=== PATIENT | female | born 1990 | race Caucasian/White ===

== ENCOUNTER 2017-03-13 22:24 | Emergency (ER) | payer SELFPAY ==
[~2017-03-13 22:24] MED LIST: ADDERALL7.5 MG PO; ADVIL PO; MIDOL PO
== END 2017-03-13 22:55 | disposition home or self-care (01) ==
LOC: ER 22:24
DX: S93.602A Unspecified sprain of left foot, initial encounter (principal); Z88.0 Allergy status to penicillin; Z88.2 Allergy status to sulfonamides; Z79.899 Other long term (current) drug therapy; W20.8XXA Other cause of strike by thrown, projected or falling object, initial encounter
CPT/HCPCS: 73630-LT; 99283